=== PATIENT | male | born 1960 | race Hispanic/Latino ===

== ENCOUNTER 2022-01-21 09:48 | Emergency (ER) | payer OTHER ==
[2022-01-21] MEDS ORDERED: ONDANSETRON 4 MG/2 ML VIAL ONE (10:15)
[2022-01-21 10:21] LABS: Absolute Lymphocytes (CBC) 3.4 K/uL (0.7-4.9); Hematocrit 40.7 % (39.6-49.0); Lymphocytes % 17.6 % (15.3-44.8); MPV 8.5 fL (7.6-11.3); RBC Red Blood Cell Count 4.81 M/uL (4.33-5.43)
[2022-01-21] MEDS ORDERED: NA CHLORIDE 0.9% 1,000 ML ONE (10:27)
[2022-01-21 10:34] LABS: Potassium 3.1 mmol/L (3.5-5.1)
[2022-01-21] MEDS ORDERED: FENTANYL CITR 100 MCG/2 ML ONE (10:48)
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
[2022-01-21] MEDS ORDERED: Ringers Lactate 1,000 ML IV ONE ×2 (11:04→12:29)
--- NOTE | 2022-01-21 11:19 | RAD REPORT ---
EXAM DESCRIPTION: RAD - Humerus Right - 01/21/2022 11:10 am CLINICAL HISTORY: Pain COMPARISON: Head C Spine Cap W Con dated 01/21/2022 FINDINGS/IMPRESSION: 1. Comminuted right proximal humerus fracture. Evaluation limited due to only a single view obtained. 2. Fracture at the elbow likely involving the distal humerus which is displaced. Other associated fra ctures of the olecranon and radial head difficult to exclude as the views are significantly limited d ue to positioning. CT would be necessary to better delineate the fractures.
[2022-01-21] MEDS ORDERED: CEFAZOLIN SODIUM 1 GM/VIAL ONE (11:31)
[2022-01-21] MEDS ORDERED: NA CHLORIDE 0.9% 100 ML ONE (11:31)
[2022-01-21 11:37] LABS: Protime INR 1.32
[2022-01-21] MEDS ORDERED: PROMETHAZINE INJ 25 MG/ML AMP ONE (11:45)
--- NOTE | 2022-01-21 12:10 | RAD REPORT ---
EXAM DESCRIPTION: RAD - Shoulder 1 View - 01/21/2022 12:01 pm CLINICAL HISTORY: post reduction COMPARISON: Head C Spine Cap W Con dated 01/21/2022 FINDINGS/IMPRESSION: The left shoulder has been relocated. A fracture at the greater tuberosity is n oted.
[2022-01-21 12:39] VITALS: TEMP 98.6
[2022-01-21 12:45] VITALS: O2SAT 100
[2022-01-21 12:47] VITALS: BP 108/63
== END 2022-01-21 12:34 | disposition short-term general hospital (02) ==
LOC: ER 09:48
PROC: 0RSKXZZ Reposition Left Shoulder Joint, External Approach (ICD-10-PCS; principal; 2022-01-21)
DX: S72.301A Unspecified fracture of shaft of right femur, initial encounter for closed fracture (principal); S42.351A Displaced comminuted fracture of shaft of humerus, right arm, initial encounter for closed fracture; S12.090A Other displaced fracture of first cervical vertebra, initial encounter for closed fracture; S43.005A Unspecified dislocation of left shoulder joint, initial encounter; V49.59XA Passenger injured in collision with other motor vehicles in traffic accident, initial encounter; U07.1 COVID-19; I10 Essential (primary) hypertension
CPT/HCPCS: 85025; 80048; 36415; 86900; 86850; 85610; 86901; 85730; 70450; 72125; 71260; 74177; 73020; 73060; 23650; U0003; Q9967; J2550; J3010; J7120 ×2; J7030; J2405; J0690; 51702; 99285; G0390